=== PATIENT | female | born 1965 | race Caucasian/White ===

== ENCOUNTER 2017-01-30 12:15 | Emergency (ER) | payer OTHER ==
[2017-01-30 12:28] VITALS: BP 127/89; PULSE 84; TEMP 99.2; BMI 36.0
--- NOTE | 2017-01-30 13:00 | PDOC ---
History of Present Illness - General Chief Complaint: Pain Stated Complaint: LEFT LOWER LEG/ANKLE PAIN SWELLING Time Seen by Provider: 01/30/17 12:25 History Source: Patient Exam Limitations: No Limitations - History of Present Illness Initial Comments: 51 yo F history Hep C, lymphedema, varicose veins, neuropathy presents with L ankle pain which has been intermittent. She states she can have pain at rest or with activity. Denies fever, chills, rash. She has darkened areas to the skin of her lower legs which have been present chronically, slowly worsening. She follows up with Dr. Yanez for vascular. She denies any change in sensation to the foot. No weakness, no redness. The pain waxes and wanes, is sharp when it is present. Past History - Past Medical History Allergies/Adverse Reactions: Allergies Allergy/AdvReac Type Severity Reaction Status Date / Time No Known Allergies Allergy Verified 01/30/17 12:17 Home Medications: Ambulatory Orders Albuterol Sulfate Inhaler - [Ventolin Hfa Inhaler -] 1 - 2 inh PO QID PRN Methadone [Dolophine -] 70 mg PO DAILY 09/15/16 Fluticasone Prop 0.05% Nasal [Flonase -] 1 - 2 spray NS BID #1 spray.pump COPD: Yes Other medical history: STATES INACTIVE HEP C - Surgical History Abdominal Surgery: No Cholecystectomy: Yes - Immunization History Td Vaccination: Yes - Psycho/Social/Smoking Cessation Hx Anxiety: No Suicidal Ideation: No Smoking Status: Yes Smoking History: Current some day smoker Have you smoked in the past 12 months: Yes Number of Cigarettes Smoked Daily: 0 If you are a former smoker, when did you quit?: 2013 Information on smoking cessation initiated: Yes 'Breaking Loose' booklet given: 01/30/17 Hx Alcohol Use: No Drug/Substance Use Hx: Yes (IV HERION) Substance Use Type: None Review of Systems - Review of Systems Able to Perform ROS?: Yes Comments:: GENERAL/CONSTITUTIONAL: No fever or chills. No weakness. HEAD, EYES, EARS, NOSE AND THROAT: No change in vision. No ear pain or discharge. No sore throat. CARDIOVASCULAR: No chest pain or shortness of breath. RESPIRATORY: No cough, wheezing, or hemoptysis. GASTROINTESTINAL: No nausea, vomiting, diarrhea or constipation. GENITOURINARY: No dysuria, frequency, or change in urination. MUSCULOSKELETAL: +L anterir ankle pain. No neck or back pain. SKIN: No rash NEUROLOGIC: No headache, vertigo, loss of consciousness, or change in strength/ sensation. ENDOCRINE: No increased thirst. No abnormal weight change. HEMATOLOGIC/LYMPHATIC: No anemia, easy bleeding, or history of blood clots. ALLERGIC/IMMUNOLOGIC: No hives or skin allergy. *Physical Exam - Vital Signs Last Vital Signs Temp Pulse Resp BP Pulse Ox 99.2 F 84 20 127/89 97 01/30/17 12:16 01/30/17 12:16 01/30/17 12:16 01/30/17 12:16 01/30/17 12:16 - Physical Exam Comments: GENERAL: Awake, alert, and fully oriented, in no acute distress HEAD: No signs of trauma EYES: PERRLA, EOMI, sclera anicteric, conjunctiva clear ENT: Auricles normal inspection, hearing grossly normal, nares patent, oropharynx clear without exudates. Moist mucosa NECK: Normal ROM, supple, no lymphadenopathy, JVD, or masses LUNGS: Breath sounds equal, clear to auscultation bilaterally. No wheezes, and no crackles HEART: Regular rate and rhythm, normal S1 and S2, no murmurs, rubs or gallops ABDOMEN: Soft, nontender, normoactive bowel sounds. No guarding, no rebound. No masses EXTREMITIES: Normal range of motion. +Hyperpigmented patches to L anterior and posterior prado (two discrete patches). Similar skin changes to R lower leg. No clubbing or cyanosis. +B/L calf tenderness (chronic and unchanged per patient). Feet both cool to touch B/L. +DP pulses, more difficult to detect on the L side. +Numerous varicosities B/L. NEUROLOGICAL: Cranial nerves II through XII grossly intact. Normal speech, normal gait SKIN: Warm, Dry, normal turgor, no rashes or lesions noted. *DC/Admit/Observation/Transfer Diagnosis at time of Disposition: Ankle pain, left Qualifiers: Chronicity: unspecified Qualified Code(s): M25.572 - Pain in left ankle and joints of left foot - Discharge Dispostion Disposition: HOME Condition at time of disposition: Stable Admit: No - Prescriptions Prescriptions: Fluticasone Prop 0.05% Nasal [Flonase -] 1 - 2 spray NS BID #1 spray.pump - Referrals Referrals: Guevara Ramires MD [Staff Physician] - - Patient Instructions Printed Discharge Instructions: DI for Varicose Veins, DI for Peripheral Vascular (Arterial) Disease, DI for Ankle Pain
== END 2017-01-30 15:37 | disposition home or self-care (01) ==
LOC: FER 12:15
DX: M25.572 Pain in left ankle and joints of left foot (principal); B18.2 Chronic viral hepatitis C; I83.90 Asymptomatic varicose veins of unspecified lower extremity; G62.9 Polyneuropathy, unspecified; Z72.0 Tobacco use
CPT/HCPCS: 93925-TC; 99283-25

== ENCOUNTER 2017-11-19 18:38 | Emergency (ER) | payer OTHER ==
[2017-11-19 19:06] LABS: PH,URINE 5.5 (4.5-8); URINE APPEARANCE Clear; URINE BILIRUBIN Negative (NEGATIVE); URINE GLUCOSE (UA) Negative (NEGATIVE); URINE KETONE Negative (NEGATIVE); URINE NITRITE Negative (NEGATIVE); URINE PROTEIN Trace (NEGATIVE); URINE UROBILINOGEN 0.2 (0.2-1.0)
[2017-11-19 19:07] LABS: URINE BLOOD Trace-intact (NEGATIVE); URINE COLOR YELLOW; URINE LEUK ESTERASE TRACE (NEGATIVE)
--- NOTE | 2017-11-19 19:08 | PDOC ---
History of Present Illness - General Chief Complaint: Urinary Problem Stated Complaint: UTI Past History - Past Medical History Allergies/Adverse Reactions: Allergies Allergy/AdvReac Type Severity Reaction Status Date / Time No Known Allergies Allergy Verified 11/19/17 18:43 Home Medications: Ambulatory Orders Albuterol Sulfate Inhaler - [Ventolin Hfa Inhaler -] 1 - 2 inh PO QID PRN Methadone [Dolophine -] 70 mg PO DAILY 09/15/16 Fluticasone Prop 0.05% Nasal [Flonase -] 1 - 2 spray NS BID #1 spray.pump COPD: Yes - Surgical History Abdominal Surgery: No Cholecystectomy: Yes - Immunization History Td Vaccination: Yes - Suicide/Smoking/Psychosocial Hx Smoking Status: Yes Smoking History: Current some day smoker Have you smoked in the past 12 months: Yes Number of Cigarettes Smoked Daily: 0 If you are a former smoker, when did you quit?: 2012 'Breaking Loose' booklet given: 01/30/17 Hx Alcohol Use: No Drug/Substance Use Hx: Yes (IV HERION) Substance Use Type: None *DC/Admit/Observation/Transfer - Discharge Dispostion Condition at time of disposition: Good - Referrals - Patient Instructions - Post Discharge Activity
[2017-11-19 19:10] VITALS: BP 139/92; PULSE 83; TEMP 98.2; BMI 36.6
--- NOTE | 2017-11-19 19:21 | PDOC ---
History of Present Illness - General History Source: Patient Exam Limitations: No Limitations - History of Present Illness Initial Comments: 11/19/17 19:46 The patient is a 52 year old female with a significant PMH of Hep C, lymphedema , varicose veins, neuropathy, and UTIs who presents to the emergency department complaining of burning with urination that began this morning. The patient describes the burning with urination as irritating and uncomfortable but denies pain when urinating. The patient also reports she has been urinating 3-4 drops at a time since this morning. The patient denies pain with urination, flank pain , frequency, urgency and hematuria. The patient denies fever, chills, nausea, vomit, diarrhea, constipation, headache, or dizziness. The patient notes this burning with urination feels similar to her UTIs in the past. The patient denies any history of kidney stones. Allergies: NKA Past surgical history: None reported. Social history: No reported alcohol, drug, or cigarette use. <Suzi Hernandez - Last Filed: 11/19/17 20:35> <Alyse Butt - Last Filed: 11/20/17 06:33> - General Chief Complaint: Urinary Problem Stated Complaint: UTI Time Seen by Provider: 11/19/17 19:12 Past History <Suzi Hernandez - Last Filed: 11/19/17 20:35> - Past Medical History COPD: Yes - Surgical History Abdominal Surgery: No Cholecystectomy: Yes - Immunization History Td Vaccination: Yes - Suicide/Smoking/Psychosocial Hx Smoking Status: Yes Smoking History: Current some day smoker Have you smoked in the past 12 months: Yes Number of Cigarettes Smoked Daily: 0 If you are a former smoker, when did you quit?: 2013 Information on smoking cessation initiated: No 'Breaking Loose' booklet given: 01/30/17 Hx Alcohol Use: No Drug/Substance Use Hx: Yes (IV HERION) Substance Use Type: None <Alyse Butt - Last Filed: 11/20/17 06:33> - Past Medical History Allergies/Adverse Reactions: Allergies Allergy/AdvReac Type Severity Reaction Status Date / Time No Known Allergies Allergy Verified 11/19/17 18:43 Home Medications: Ambulatory Orders Albuterol Sulfate Inhaler - [Ventolin Hfa Inhaler -] 1 - 2 inh PO QID PRN Methadone [Dolophine -] 70 mg PO DAILY 09/15/16 Fluticasone Prop 0.05% Nasal [Flonase -] 1 - 2 spray NS BID #1 spray.pump Nitrofurantoin Monohyd/M-Cryst [Macrobid -] 100 mg PO BID #14 capsule 11/19/17 Review of Systems - Review of Systems Able to Perform ROS?: Yes Comments:: 11/19/17 19:47 CONSTITUTIONAL: Absent: fever, no chills, no fatigue EYES: Absent: visual changes ENT: Absent: ear pain, no sore throat CARDIOVASCULAR: Absent: chest pain, no palpitations RESPIRATORY: Absent: cough, no SOB GI: Absent: abdominal pain, no nausea, no vomiting, no constipation, no diarrhea GENITOURINARY: Absent: no frequency, no hematuria Present: dysuria MUSKULOSKELETAL: Absent: back pain, no arthralgia, no myalgia SKIN: Absent: rash NEURO: Absent: headache <Suzi Hernandze - Last Filed: 11/19/17 20:35> *Physical Exam - Vital Signs Last Vital Signs Temp Pulse Resp BP Pulse Ox 98.2 F 83 15 139/92 98 11/19/17 18:39 11/19/17 18:39 11/19/17 18:39 11/19/17 18:39 11/19/17 18:39 - Physical Exam Comments: 11/19/17 20:35 GENERAL: Well-appearing, well-nourished. No apparent distress. HEENT: Normocephalic, atraumatic. PERRL, EOM intact. CARDIOVASCULAR: Normal S1, S2. Regular rate and rhythm. PULMONARY: Clear to auscultation bilaterally. ABDOMEN: Soft, non-distended, non-tender. EXTREMITIES: Normal ROM in all four extremities. No gross deformities. SKIN: Warm, dry. No rash NEUROLOGICAL: No focal neurological deficits. <Suzi Hernandez - Last Filed: 11/19/17 20:35> - Vital Signs Last Vital Signs Temp Pulse Resp BP Pulse Ox 98.2 F 83 15 139/92 98 11/19/17 18:39 11/19/17 18:39 11/19/17 18:39 11/19/17 18:39 11/19/17 18:39 <Alyse Butt - Last Filed: 11/20/17 06:33> ED Treatment Course - ADDITIONAL ORDERS Additional order review: Laboratory Results 11/19/17 18:50 Urine Color Yellow Urine Appearance Clear Urine pH 5.5 Ur Specific [place] >= 1.030 H Urine Protein Trace Urine Glucose (UA) Negative Urine Ketones Negative Urine Blood Trace-intact H Urine Nitrite Negative Urine Bilirubin Negative Urine Urobilinogen 0.2 Ur Leukocyte Esterase Trace H <Suzi Hernandez - Last Filed: 11/19/17 20:35> - ADDITIONAL ORDERS Additional order review: Laboratory Results 11/19/17 18:50 Urine Color Yellow Urine Appearance Clear Urine pH 5.5 Ur Specific [place] >= 1.030 H Urine Protein Trace Urine Glucose (UA) Negative Urine Ketones Negative Urine Blood Trace-intact H Urine Nitrite Negative Urine Bilirubin Negative Urine Urobilinogen 0.2 Ur Leukocyte Esterase Trace H <Alyse Butt - Last Filed: 11/20/17 06:33> Medical Decision Making - Medical Decision Making 11/19/17 20:23 Pt seen/examined. Sxs most suggestive of UTI - dysuria, urgency, hesitancy. Also with some vaginal pruritis. Pt reports that sxs feel like UTI, possible yeast infection. Discussed vaginal exam vs empiric trx with fluconazole for yeast - pt feels that sxs are improving but opts for empiric trx. Has allergy to "an antibiotic which was used for a sinus infection" - she doesn't know the name of it. UA reviewed +WBC, +trace LE, few bacteria. Well appearing, no CVAT, no s/o ascending infection. - macrobid 100mg BID x7d (first dose now, will obs pt to ensure no rxn) - fluconazole 150mg PO empiric trx for yeast - dc home, f/u with PMD <Alyse Butt - Last Filed: 11/20/17 06:33> *DC/Admit/Observation/Transfer <Suzi Hernandez - Last Filed: 11/19/17 20:35> - Discharge Dispostion Admit: No <Alyse Butt - Last Filed: 11/20/17 06:33> Diagnosis at time of Disposition: Dysuria - Discharge Dispostion Disposition: HOME Condition at time of disposition: Good - Prescriptions Prescriptions: Nitrofurantoin Monohyd/M-Cryst [Macrobid -] 100 mg PO BID #14 capsule - Patient Instructions Printed Discharge Instructions: DI for Dysuria -- Adult Additional Instructions: You were seen in the ER for urinary symptoms and itching. We tested your urine and it was positive for a urinary tract infection (UTI). Because of your symptoms, we also treated you for possible yeast infection with 150mg of fluconazole. Please take the macrobid twice a day for 7 days and follow up with your primary care doctor. Return to the ER if your symptoms worsen or you have fever, back pain.
[2017-11-19 19:55] LABS: EPI CELLS FEW /HPF; URINE BACTERIA FEW /hpf (NEGATIVE)
[2017-11-19] MEDS ORDERED: FLUCONAZOLE 150 MG TABLET PO ONE ×2 (20:22→20:25)
[2017-11-19] MEDS ORDERED: NITROFURANTOIN MACROCRYSTAL 50 MG CAPSULE (FP) ONE (20:25)
[2017-11-19] MEDS ORDERED: NITROFURANTOIN MACROCRYSTAL 50 MG CAPSULE (FP) PO SCH (20:30)
== END 2017-11-19 20:39 | disposition home or self-care (01) ==
LOC: FER 18:38
DX: R30.0 Dysuria (principal); B19.20 Unspecified viral hepatitis C without hepatic coma; I89.0 Lymphedema, not elsewhere classified; I83.90 Asymptomatic varicose veins of unspecified lower extremity
CPT/HCPCS: 81003; 81015; 87086; 99281-25

== ENCOUNTER 2019-02-18 14:45 | Emergency (ER) | payer OTHER | END 2019-02-18 18:51 | disposition home or self-care (01) | LOC: FER 14:45 ==

== ENCOUNTER 2019-09-18 17:00 | Emergency (ER) | payer OTHER ==
--- NOTE | 2019-09-18 17:59 | PDOC ---
History of Present Illness - General Chief Complaint: Respiratory Stated Complaint: FLU Time Seen by Provider: 09/18/19 17:59 History Source: Patient Exam Limitations: No Limitations - History of Present Illness Initial Comments: 09/18/19 18:00 54yF w PMHx HepC (resolved), COPD, lymphedema, peripheral neuropathy, JEMIMA presenting w fever, cough, body aches. Subjective fever, non productive cough, nasal congestion, frontal headache, body aches, chest tightness started last night. Not relieved w tylenol. Close contact w daughter 2d ago dx w flu. Denies sore throat, SOB, nausea/vomiting, urinary symptoms Past History - Past Medical History Allergies/Adverse Reactions: Allergies Allergy/AdvReac Type Severity Reaction Status Date / Time No Known Allergies Allergy Verified 02/18/19 14:45 Home Medications: Ambulatory Orders Methadone [Dolophine -] 70 mg PO DAILY 09/15/16 Oseltamivir Phosphate [Tamiflu] 75 mg PO BID 5 Days #10 capsule 09/18/19 COPD: Yes - Surgical History Abdominal Surgery: No Appendectomy: Yes Cholecystectomy: Yes - Immunization History Td Vaccination: Yes - Psycho Social/Smoking Cessation Hx Smoking Status: Yes Smoking History: Former smoker Have you smoked in the past 12 months: No Number of Cigarettes Smoked Daily: 0 If you are a former smoker, when did you quit?: 2014 'Breaking Loose' booklet given: 01/30/17 Hx Alcohol Use: No Drug/Substance Use Hx: Yes Substance Use Type: None Review of Systems - Review of Systems Constitutional: Yes: Fever. No: Chills HEENTM: No: Eye Pain, Recent change in vision, Ear Discharge, Mouth Pain Respiratory: Yes: Cough. No: Shortness of Breath Cardiac (ROS): Yes: Chest Tightness. No: Lightheadedness ABD/GI: No: Abdominal Distended, Constipated, Diarrhea, Nausea, Vomiting : No: Burning, Dysuria, Flank Pain Musculoskeletal: Yes: Muscle Weakness. No: Joint Pain Integumentary: No: Bruising, Dryness, Erythema Neurological: Yes: Headache. No: Seizure, Tingling Psychiatric: No: Anxiety, Depression, Stressors Endocrine: No: Excessive Sweating, Flushing, Intolerance to Cold, Intolerance to Heat Hematologic/Lymphatic: No: Anemia, Blood Clots *Physical Exam - Physical Exam General Appearance: Yes: Nourished, Appropriately Dressed, Mild Distress HEENT: positive: EOMI, ELIZABETH, Normal Voice, Nasal Congestion, Hearing Grossly Normal. negative: Scleral Icterus (R), Scleral Icterus (L) Neck: positive: Supple. negative: Tender, Rigid, Lymphadenopathy (R), Lymphadenopathy (L) Respiratory/Chest: positive: Lungs Clear, Normal Breath Sounds. negative: Chest Tender, Respiratory Distress, Crackles, Rales, Rhonchi, Stridor, Wheezing Cardiovascular: positive: Regular Rhythm, Regular Rate, S1, S2. negative: Edema , Murmur Extremity: positive: Normal Capillary Refill Integumentary: positive: Normal Color. negative: Rash Neurologic: positive: gas worker II-XII NML intact, Fully Oriented, Alert, Normal Mood/ Affect, Normal Response, Motor Strength 5/5, Responsive. negative: Numbness, Confused, Disoriented Medical Decision Making - Medical Decision Making 09/18/19 18:17 54yF w PMHx HepC (resolved), COPD, lymphedema, peripheral neuropathy, JEMIMA presenting w 1d subjective fever, cough, body aches likely d/t flu (sick contact ). Refused CXR. Pending flu swab Given tamifu, tylenol, DC home w tamiflu, albuterol inhaler Discharge - Discharge Information Problems reviewed: Yes Clinical Impression/Diagnosis: Influenza Condition: Good Disposition: HOME - Additional Discharge Information Prescriptions: Oseltamivir Phosphate [Tamiflu] 75 mg PO BID 5 Days #10 capsule - Follow up/Referral Referrals: Sapna Garza MD [Primary Care Provider] - CallBack Reminder: Influenza result - Patient Discharge Instructions Patient Printed Discharge Instructions: DI for H1N1 Influenza -- Adult Additional Instructions: You were seen for cough and body aches. You likely have the flu. You were given medication Please take the prescribed Tamiflu as directed. Take albuterol if you have shortness of breath. Take tylenol or ibuprofen if you have pain. Come back to the ED if you cannot breathe, vomiting, or worsening chest pain. - Post Discharge Activity
[2019-09-18] MEDS ORDERED: ACETAMINOPHEN 500 MG TABLET (FP) PO ONE (18:10)
[2019-09-18 18:11] VITALS: BP 125/83; PULSE 82; TEMP 99.4; BMI 35.9
[2019-09-18] MEDS ORDERED: OSELTAMIVIR PHOSPHATE 75 MG CAPSULE PO ONE (18:38)
[2019-09-18] MEDS ORDERED: ACETAMINOPHEN 500 MG TABLET (FP) ONE (18:46)
[2019-09-18] MEDS ORDERED: OSELTAMIVIR PHOSPHATE 75 MG CAPSULE ONE (18:46)
--- NOTE | 2019-09-18 18:59 | PDOC ---
Attending Attestation - Resident Resident Name: Nomi,Jermaine - ED Attending Attestation I have performed the following: I have examined & evaluated the patient, The case was reviewed & discussed with the resident, I agree w/resident's findings & plan, Exceptions are as noted - HPI HPI: 09/18/19 18:57 54 yo F h/o treated hep C, copd here wtih c/o cough congestion fever myalgia. pt states duaghter diagnosed with flu 2 days ago. no current n/v does not have inhaler at home. has not felt sob or have any wheezing. no cp no other complaints. no travel no rash. - Physicial Exam PE: 09/18/19 18:57 awake alert lungs clear bilat heart rrr no mrg abd soft nt nd ext wwp. no edema. no calf tenderness. - Medical Decision Making 09/18/19 18:58 54 yo h/o copd here with flu. positive exposure. sxs. will treat with tamiflu due to underlying lung disease. given rx for albuterol dc home
== END 2019-09-18 18:53 | disposition home or self-care (01) ==
LOC: FER 17:00
DX: J11.1 Influenza due to unidentified influenza virus with other respiratory manifestations (principal); G47.33 Obstructive sleep apnea (adult) (pediatric); J44.9 Chronic obstructive pulmonary disease, unspecified; G62.9 Polyneuropathy, unspecified; Z87.891 Personal history of nicotine dependence
CPT/HCPCS: 71046-TC-FY; 87804; 99281-25

== ENCOUNTER 2020-10-12 10:29 | Emergency (ER) | payer OTHER | END 2020-10-12 11:51 | disposition home or self-care (01) | LOC: JVIRT 10:29 | DX: Z20.822 Contact with and (suspected) exposure to COVID-19 (principal) | CPT/HCPCS: C9803; G2012-GT; U0003 ==

== ENCOUNTER 2021-09-02 15:09 | Emergency (ER) | payer OTHER ==
[2021-09-02 15:35] VITALS: BP 137/86; PULSE 90; TEMP 98.8; BMI 37.2
[2021-09-02 15:43] LABS: EPITHELIAL CELLS FEW /hpf
[2021-09-02] MEDS ORDERED: LIDOCAINE 5% TOPICAL PATCH TP ONE (15:57)
[2021-09-02] MEDS ORDERED: KETOROLAC TROMETHAMINE 15 MG/ML VIAL IVPUSH ONE (15:57)
[2021-09-02] MEDS ORDERED: KETOROLAC TROMETHAMINE 15 MG/ML VIAL ONE (16:11)
[2021-09-02] MEDS ORDERED: LIDOCAINE 5% TOPICAL PATCH ONE (16:11)
[2021-09-02 17:31] LABS: ALBUMIN 4.3 g/dl (3.4-5.0); BILIRUBIN,TOTAL 0.6 mg/dl (0.2-1); CALCIUM 9.7 mg/dl (8.5-10); CREATININE 0.7 mg/dl (0.55-1.3); TOT PROT 7.7 g/dl (6.4-8.2)
[2021-09-02 18:18] LABS: BASO % 0.5 % (0-2.0); EOS % 2.1 % (0-4.5); HEMATOCRIT 39.4 % (32.4-45.2); LYMPH % 30.8 % (8-40); MCH 28.2 pg (25.7-33.7); MEAN CELL VOLUME 85.3 fl (80-96); MEAN PLT VOLUME 7.9 fl (7.5-11.1); MONO % 7.2 % (3.8-10.2); NEUT % 59.4 % (42.8-82.8); PLATELET COUNT 240 10^3/uL (134-434); RBC 4.62 M/mm3 (3.60-5.2); RDW 14.1 % (11.6-15.6); WHITE BLOOD COUNT 7.5 K/mm3 (4.0-10.0)
[2021-09-02] MEDS ORDERED: SODIUM CHLORIDE 0.9% 500 ML INFUS.BAG IV ONE (18:32)
[2021-09-02] MEDS ORDERED: LIDOCAINE PATCH REMOVAL MC SCH (22:00)
== END 2021-09-02 20:50 | disposition home or self-care (01) ==
LOC: FER 15:09
DX: M54.50 Low back pain, unspecified (principal); R10.9 Unspecified abdominal pain
CPT/HCPCS: 36415; 71046-TC-FY; 71275-TC; 80053; 81003; 81015; 82550; 84484; 85025; 85379; 87086; 93005; 99285-25; Q9967